=== PATIENT | male | born 1950 | race Caucasian/White ===

== ENCOUNTER → 2022-05-20 | Outpatient (CLI) | payer MEDICARE ==
--- NOTE | 2022-05-20 16:33 | Diagnostic Imaging Report ---
KNEE, RIGHT, 4 VIEWS OR > INDICATION: Right knee pain COMPARISON: None available. TECHNIQUE: 4 views of right knee FINDINGS: Moderate size knee joint effusion. No fracture. Mild joint space narrowing the medial and patellofemoral compartments. No mineralized joint bodies. No fracture or worrisome focal osseous lesions. IMPRESSION: 1. Mild degenerative arthritis. 2. Moderate size joint effusion. Dictated by: Dictated on workstation # [id number]
== END ==
LOC: ORTHO 11:29
PROVIDERS: ATTEND Orthopaedic Surgery
DX: M17.11 Unilateral primary osteoarthritis, right knee (principal)
CPT/HCPCS: 73564; G0463; 99202